=== PATIENT | male | born 1960 | race Caucasian/White ===

== ENCOUNTER 2021-04-17 11:45 | Inpatient (IN) | payer OTHER ==
[~2021-04-17] VITALS: Ht 177.8 cm; Wt 72.6 kg
[~2021-04-17 11:45] MED LIST: CIPRO750 MG PO; CLONAZEPAM1 MG PO; DOCUSATE SODIU100 MG PO; NEURONTIN PO; PERCOCET 5/3251 TAB PO
[2021-04-17] MEDS ORDERED: LANTUS SOL100 UNIT/1 (13:24)
[2021-04-17] MEDS ORDERED: TRULICITY0.75 MG/0. (13:24)
[2021-04-17] MEDS ORDERED: METFORMIN HCL1000 M2 PO (13:25)
[2021-04-17] MEDS ORDERED: LITHOBID300 M1 PO (13:25)
[2021-04-17] MEDS ORDERED: MONTELUKAST SOD10 MG PO (13:25)
[2021-04-17] MEDS ORDERED: ZOCOR40 MG PO (13:26)
[2021-04-17] MEDS ORDERED: ALTACE2.5 MG PO (13:26)
[2021-04-21] MEDS ORDERED: COLACE100 MG PO (13:04)
[2021-04-21] MEDS ORDERED: MEDROLPACK PO (13:06)
[2021-04-21] MEDS ORDERED: NEURONTIN800 MG PO (13:06)
[2021-04-21] MEDS ORDERED: PERCOCET 5-3251 EACH PO (13:06)
[2021-04-21] MEDS ORDERED: AMOX-CLAV 875-1 EACH PO (13:06)
== END 2021-04-22 14:23 | disposition home or self-care (01) | DRG 455 ==
LOC: SURH 04-21 06:28 → O/R 04-21 06:28 → SURH 04-21 11:45 → SURG 04-21 18:58 → SURH 04-21 19:01
PROVIDERS: ADMIT Orthopaedic Surgery Orthopaedic Surgery of the Spine; ATTEND Orthopaedic Surgery Orthopaedic Surgery of the Spine
PROC: 0SG00J1 Fusion of Lumbar Vertebral Joint with Synthetic Substitute, Posterior Approach, Posterior Column, Open Approach (ICD-10-PCS; 2021-04-21)
PROC: 0QB30ZZ Excision of Left Pelvic Bone, Open Approach (ICD-10-PCS; 2021-04-21)
PROC: 07DR0ZZ Extraction of Iliac Bone Marrow, Open Approach (ICD-10-PCS; 2021-04-21)
PROC: 0SG00AJ Fusion of Lumbar Vertebral Joint with Interbody Fusion Device, Posterior Approach, Anterior Column, Open Approach (ICD-10-PCS; principal; 2021-04-21 15:00)
DX: M48.062 Spinal stenosis, lumbar region with neurogenic claudication (principal); M51.36 Other intervertebral disc degeneration, lumbar region; M54.16 Radiculopathy, lumbar region; E11.9 Type 2 diabetes mellitus without complications; I10 Essential (primary) hypertension